=== PATIENT | female | born 1955 | race Two or more races ===

== ENCOUNTER 2020-03-13 13:05 | Emergency (ER) | payer BC ==
[~2020-03-13] VITALS: Ht 154.9 cm; Wt 62.6 kg
[2020-03-13 13:16] VITALS: BP 145/75
--- NOTE | 2020-03-13 13:16 | NUR ---
ED Nurse Note: Pt walked in to ED for C/O dizziness since this morning around 6:30am. Pt reports having tingling sensation to left ujpper arm area and left leg. pt is alert x4.
[2020-03-13] MEDS ORDERED: LOVASTATIN20 MG ORAL (13:21)
[2020-03-13] MEDS ORDERED: LISINOPRIL40 MG ORAL (13:21)
[2020-03-13] MEDS ORDERED: METFORMIN HCL850 M1 ORAL (13:21)
--- NOTE | 2020-03-13 14:02 | NUR ---
ED Nurse Note: blood sample collected and sent to lab. pt taken to CT of the head via harsh in atble condition.
[2020-03-13 14:15] LABS: BASOPHILS % (AUTO) 0.9 % (0.0-2.0); EOSINOPHILS % (AUTO) 0.7 % (0.0-3.0); HEMATOCRIT 39.8 % (37.0-47.0); HEMOGLOBIN 13.5 G/DL (12.0-16.0); LYMPHOCYTES % (AUTO) 20.2 % (20.0-45.0); MEAN CORPUSCULAR VOLUME 96 FL (80-99); MONOCYTES % (AUTO) 6.5 % (1.0-10.0); NEUTROPHILS % (AUTO) 71.6 % (45.0-75.0); PLATELET COUNT 159 K/UL (150-450); RED BLOOD COUNT 4.14 M/UL (4.20-5.40); RED CELL DISTRIBUTION WIDTH 10.5 % (11.6-14.8); WHITE BLOOD COUNT 7.6 K/UL (4.8-10.8)
--- NOTE | 2020-03-13 14:17 | NUR ---
ED Nurse Note: pt abck from CT
[2020-03-13 14:21] LABS: ANION GAP 12 mmol/L (5-15); BLOOD UREA NITROGEN 9 mg/dL (7-18); CALCIUM 8.6 MG/DL (8.5-10.1); CARBON DIOXIDE 26 MMOL/L (21-32); CHLORIDE 102 MMOL/L (98-107); CREATININE 0.8 MG/DL (0.55-1.30); POTASSIUM 3.8 MMOL/L (3.5-5.1); SODIUM 140 MMOL/L (136-145)
[2020-03-13 14:25] LABS: ALANINE AMINOTRANSFERASE 23 U/L (12-78); ALBUMIN/GLOBULIN RATIO 1.3 (1.0-2.7); ALKALINE PHOSPHATASE 68 U/L (46-116); ASPARTATE AMINO TRANSFERASE 19 U/L (15-37); BILIRUBIN,TOTAL 0.4 MG/DL (0.2-1.0)
[2020-03-13] MEDS ORDERED: ACETAMINOPHEN500 M3 ORAL (14:56)
--- NOTE | 2020-03-13 15:01 | Diagnostic Imaging Report ---
Indications: Left arm and leg numbness Technique: Spiral acquisitions obtained through the brain. Angled axial and coronal 5 x 5 mm slices were reconstructed. Total dose length product diameter 65 mGycm. CTDI vol(s) 53 mGy. Dose reduction achieved using automated exposure control Comparison: None. Findings: No acute intracranial hemorrhage or edema, mass effect, nor midline shift. Normal andino-white differentiation. Normal size ventricles and extra axial CSF spaces. Visualized orbits and sinuses are unremarkable. The calvarium is intact. The mastoids are clear. Impression: Negative The CT scanner at [facility] is accredited by the [employer] and the scans are performed using protocols designed to limit radiation exposure to as low as reasonably achievable to attain images of sufficient resolution adequate for diagnostic evaluation.
[2020-03-13 15:31] VITALS: BP 140/77
--- NOTE | 2020-03-13 15:31 | NUR ---
ER DISCHARGE NOTE: Patient is cleared to be discharged per ERMD, pt is aox4, on room air, with stable vital signs. pt was given dc and prescription instructions, pt was able to verbalize understanding, pt id band and iv site removed without complications. pt is able to ambulate with steady gait. pt took all belongings.
--- NOTE | 2020-03-15 15:39 | Emergency Room Report ---
History of Present Illness General Chief Complaint: General Complaint Source: Patient Present Illness HPI Patient is a 65-year-old female presents after increased left-sided arm tingling as well as left-sided leg tingling. Gradual onset.. Reports having history of hypertension. She feels this may have been her blood pressure. Denies any weakness to her extremities. Denies any fever. Denies any nausea or vomiting. Allergies: Coded Allergies: No Known Allergies (Unverified , 03/13/20) COVID-19 Screening Contact w/high risk pt: No Recent Travel to affected area: No Experienced COVID-19 symptoms?: No COVID-19 Testing performed NEEDLE FELT MAKING MACHINE OPERATOR: No Patient History Past Medical History: see triage record Now: No Reviewed Nursing Documentation: PMH: Agreed; PSxH: Agreed Nursing Documentation-PMH Hx Hypertension: Yes Hx Diabetes: Yes Review of Systems All Other Systems: negative except mentioned in HPI Physical Exam Vital Signs Date Time Temp Pulse Resp B/P (MAP) Pulse Ox O2 Delivery O2 Flow Rate FiO2 03/13/20 13:08 99.3 78 20 157/67 (97) 96 Room Air Sp02 EP Interpretation: reviewed, normal General Appearance: normal inspection, well appearing, no apparent distress, alert, GCS 15, non-toxic Head: atraumatic ENT: normal ENT inspection, hearing grossly normal, normal voice Neck: normal inspection, full range of motion, supple, no bony tend Respiratory: normal inspection, lungs clear, normal breath sounds, no respiratory distress, no retraction, no wheezing Cardiovascular #1: regular rate, rhythm, no edema Cardiovascular #2: 4+ radial (R), 4+ radial (L), 4+ dorsalis pedis (R), 4+ dorsalis pedis (L) Gastrointestinal: normal inspection, normal bowel sounds, non tender, soft, no guarding, no hernia Genitourinary: no CVA tenderness Musculoskeletal: normal inspection, back normal, normal range of motion Neurologic: alert, motor strength/tone normal, sample stitcher III-XII nml as tested, oriented, oriented x3, responsive, speech normal, normal inspection, no focal defects Psychiatric: normal inspection, judgement/insight normal, mood/affect normal Skin: no rash Medical Decision Making Diagnostic Impression: Primary Impression: Leg pain, left Additional Impression: Hypertension ER Course Patient presented for left leg pain. Differential diagnosis includes not limited to radiculopathy, CVA, hyperventilation, myocardial ischemia among others. Because of complexity of patient's case laboratory tests and imaging studies were ordered. EKG interpreted by me showed normal sinus rhythm without acute ST or T wave changes. Patient laboratory testing was unremarkable. There does not appear to be any evidence of vascular compromise. CT imaging of the head showed no acute process. Patient was offered admission due to paresthesias for further work-up as I do not see any definite cause for patient' s paresthesias. Patient declined and stated felt better and wished to leave. The patient is advised to follow up with primary care doctor in 1-2 daysf for outpatient workup. Patient is advised to return if any worsening condition or if any changes in status that are concerning. This report is dictated with [employer] solar electric/photovoltaic installer software which may occasionally lead to discrepancies related to use of this software. Labs Test 03/13/20 13:54 White Blood Count 7.6 K/UL (4.8-10.8) Red Blood Count 4.14 M/UL (4.20-5.40) Hemoglobin 13.5 G/DL (12.0-16.0) Hematocrit 39.8 % (37.0-47.0) Mean Corpuscular Volume 96 FL (80-99) Mean Corpuscular Hemoglobin 32.7 PG (27.0-31.0) Mean Corpuscular Hemoglobin Concent 34.0 G/DL (32.0-36.0) Red Cell Distribution Width 10.5 % (11.6-14.8) Platelet Count 159 K/UL (150-450) Mean Platelet Volume 9.5 FL (6.5-10.1) Neutrophils (%) (Auto) 71.6 % (45.0-75.0) Lymphocytes (%) (Auto) 20.2 % (20.0-45.0) Monocytes (%) (Auto) 6.5 % (1.0-10.0) Eosinophils (%) (Auto) 0.7 % (0.0-3.0) Basophils (%) (Auto) 0.9 % (0.0-2.0) Prothrombin Time 11.2 SEC (9.30-11.50) Prothromb Time International Ratio 1.0 (0.9-1.1) Activated Partial Thromboplast Time 25 SEC (23-33) D-Dimer 0.54 mg/L FEU (0.00-0.49) Sodium Level 140 MMOL/L (136-145) Potassium Level 3.8 MMOL/L (3.5-5.1) Chloride Level 102 MMOL/L (98-107) Carbon Dioxide Level 26 MMOL/L (21-32) Anion Gap 12 mmol/L (5-15) Blood Urea Nitrogen 9 mg/dL (7-18) Creatinine 0.8 MG/DL (0.55-1.30) Estimat Glomerular Filtration Rate > 60 mL/min (>60) Glucose Level 96 MG/DL (74-106) Calcium Level 8.6 MG/DL (8.5-10.1) Total Bilirubin 0.4 MG/DL (0.2-1.0) Aspartate Amino Transf (AST/SGOT) 19 U/L (15-37) Alanine Aminotransferase (ALT/SGPT) 23 U/L (12-78) Alkaline Phosphatase 68 U/L (46-116) Troponin I 0.001 ng/mL (0.000-0.056) Total Protein 7.0 G/DL (6.4-8.2) Albumin 4.0 G/DL (3.4-5.0) Globulin 3.0 g/dL Albumin/Globulin Ratio 1.3 (1.0-2.7) EKG Diagnostic Results Rate: normal Rhythm: NSR ST Segments: no acute changes Last Vital Signs Date Time Temp Pulse Resp B/P (MAP) Pulse Ox O2 Delivery O2 Flow Rate FiO2 03/13/20 15:31 99.1 77 18 140/77 97 Room Air Status: improved - Exam place Disposition: HOME, SELF-CARE Condition: Stable Scripts Acetaminophen* (ACETAMINOPHEN EXTRA STRENGTH*) 500 Mg Tablet 500 MG ORAL Q8H PRN for Fever/Headache/Mild Pain, #30 TAB Prov: Mckay Toure MD 03/13/20 Referrals: NON PHYSICIAN (PCP) Patient Instructions: Hypertension Additional Instructions: Follow up for recheck in 1-2 days with your doctor. Return if worse. Mckay Toure MD Mar 15, 2020 15:39
== END 2020-03-13 15:31 | disposition home or self-care (01) ==
LOC: EMR 13:43
DX: M79.605 Pain in left leg (principal); I10 Essential (primary) hypertension; E11.9 Type 2 diabetes mellitus without complications
CPT/HCPCS: 36415; 70450; 80053; 84484; 85025; 85379; 85610; 85730; 93005; 99284; J7040